=== PATIENT | female | born 1965 | race Caucasian/White ===

== ENCOUNTER 2020-09-12 14:35 | Emergency (ER) | payer OTHER ==
[2020-09-12 17:14] LABS: CORONAVIRUS 2019 SARS-COV-2 NEGATIVE (NEGATIVE); INFLUENZA A NAA NEGATIVE (NEGATIVE)
[2020-09-12 18:45] LABS: BILIRUBIN NEGATIVE (NEGATIVE); BLOOD 1+ Ery/uL (NEGATIVE); CLARITY CLEAR (CLEAR); COLOR YELLOW (YELLOW); GLUCOSE (U) NORMAL (NORMAL); LEUKOCYTES NEGATIVE Leu/uL (NEGATIVE); NITRITE NEGATIVE (NEGATIVE); PROTEIN NEGATIVE (NEGATIVE); UROBILINOGEN 0.2 mg/dL (0.2-1.0)
[2020-09-12 18:46] LABS: BASOPHIL 0.2 % (0-2); EOSINOPHIL 1.8 % (0-5); HCT 44.2 % (37.0-47.0); LYMPHOCYTE 26.7 % (15-48); MCHC 31.7 g/dL (32.0-36.0); MCV 97.8 fL (78.0-100.0); MONOCYTE 6.5 % (0-12); MPV 9.7 fL (6.0-9.5); NEUTROPHIL 64.4 % (41-80); NRBC 0; PLT 151 K/uL (150-400); RBC 4.52 M/uL (4.20-5.40); RDW 13.5 % (11.5-14.0); WBC 5.5 K/uL (4.0-10.5)
[2020-09-12 18:48] LABS: SQUAMOUS EPITHELIAL CELLS RARE
[2020-09-12 19:03] LABS: ALBUMIN 3.4 g/dL (3.4-5.0); BILIRUBIN - TOTAL 0.2 mg/dL (0.2-1.0); BUN/CREAT RATIO (CALC) 17.4 RATIO; CREATININE 0.46 mg/dL (0.51-0.95); GLOBULIN (CALCULATION) 3.5 g/dL; POTASSIUM 3.5 mmol/L (3.5-5.1); TOTAL PROTEIN 6.9 g/dL (6.4-8.2)
== END 2020-09-12 21:09 | disposition home or self-care (01) ==
LOC: FER 14:35
PROVIDERS: Emergency Medicine; Nurse Practitioner Family
DX: B34.9 Viral infection, unspecified (principal); R07.89 Other chest pain; J44.9 Chronic obstructive pulmonary disease, unspecified; Z88.0 Allergy status to penicillin; Z87.891 Personal history of nicotine dependence; Z20.822 Contact with and (suspected) exposure to COVID-19
CPT/HCPCS: 36415; 71046; 80053; 81001; 85025; J1885; J7030; U0002

== ENCOUNTER 2021-01-14 21:05 | Day surgery (SDCO) | payer OTHER ==
[~2021-01-14] VITALS: Ht 154.9 cm; Wt 47.2 kg
[2021-01-14 21:36] LABS: BASOPHIL 0.4 % (0-2); EOSINOPHIL 1.9 % (0-5); HCT 55.1 % (37.0-47.0); HGB 17.8 g/dl (12.5-16.0); LYMPHOCYTE 26.8 % (15-48); MCH 32.2 pg (25.0-31.0); MCHC 32.3 g/dL (32.0-36.0); MCV 99.6 fL (78.0-100.0); MONOCYTE 9.1 % (0-12); MPV 10.2 fL (6.0-9.5); NEUTROPHIL 61.4 % (41-80); NRBC 0; PLT 182 K/uL (150-400); RBC 5.53 M/uL (4.20-5.40); RDW 13.4 % (11.5-14.0); WBC 4.7 K/uL (4.0-10.5)
[2021-01-14 22:05] LABS: INR 1.09 (0.9-1.2); PROTHROMBIN TIME 13.4 SECONDS (11.4-13.6); PTT 28.5 SECONDS (22.2-34.7)
[2021-01-14 22:06] LABS: D-DIMER 0.57 ug/mLFEU (0.00-0.41)
[2021-01-14 22:18] LABS: ALBUMIN 3.3 g/dL (3.4-5.0); ALKALINE PHOSHATASE 60 U/L (46-116); ALT 11 U/L (14-59); AST 14 U/L (15-37); BILIRUBIN - TOTAL 0.5 mg/dL (0.2-1.0); BUN 9 mg/dL (7-18); BUN/CREAT RATIO (CALC) 17.3 RATIO; CHLORIDE 98 mmol/L (98-107); CO2 (BICARBONATE) 44 mmol/L (21-32); CREATININE 0.52 mg/dL (0.51-0.95); GLOBULIN (CALCULATION) 4.4 g/dL; GLUCOSE 134 mg/dL (74-106); POTASSIUM 3.2 mmol/L (3.5-5.1); TOTAL PROTEIN 7.7 g/dL (6.4-8.2)
[2021-01-14 22:19] LABS: PRO-BNP 397 pg/mL (<125)
[2021-01-15] MEDS ORDERED: GABAPENTIN600 MG PO (05:31)
--- NOTE | 2021-01-15 05:35 | NUR ---
AM ABG OBTIANED. PATIENT WAS ON 4L SAT 98%, PATIENT LETHARGIC, BUT COHERENT WHEN TALKING AND ARROUSABLE. PATIENT STATED WEARS 3L @ HOME. ABG ON 4L 7.245/109 CO2/120 PO2/47.2, SAT 98% . RESULTS CALLED TO ADAN MIX AND DISCUSSED PLACING PATIENT ON BIPAP. THIS RT WENT AND EDUCATED PATIENT ON BIPAP, IMPORTANCE AND PURPOSE AT THIS TIME FOR HER BENEFIT. ALSO EXPLAINED TO PATIENT ABOUT THE INCREASED CO2 LEVELS AND HOW SHE HAS BEEN FEELING. PATIENT AGREED TO BIPAP. PATIENT IS PETITE, SMALL MASK REQUIRED. PLACED ON 07/21, RATE 18, FIO2 35% TO KEEP SAT 88-92%. PATIENT TOLERATING BIPAP EXTREMELY WELL. RT STAYED WITH PATIENT ABOUT 10 MINUTES AFTER PLACING ON BIPAP. ADAN MIX NOTIFIED OF SETTINGS. CONTINUE TO MONITOR PATIENT AND AWAIT FURTHER ORDERS. SAT 91%, HR 105 PATIENT HAS RALES THROUGHOUT ON AUSCULATION.
[2021-01-15 06:00] LABS: BASOPHIL 0 % (0-2); EOSINOPHIL 0 % (0-5); HCT 48.5 % (37.0-47.0); HGB 15.1 g/dl (12.5-16.0); LYMPHOCYTE 8.3 % (15-48); MCH 31.5 pg (25.0-31.0); MCHC 31.1 g/dL (32.0-36.0); MCV 101.3 fL (78.0-100.0); MONOCYTE 0.9 % (0-12); MPV 10.3 fL (6.0-9.5); NEUTROPHIL 90.4 % (41-80); NRBC 0; PLT 155 K/uL (150-400); RBC 4.79 M/uL (4.20-5.40); RDW 13.4 % (11.5-14.0); WBC 2.3 K/uL (4.0-10.5)
[2021-01-15 06:15] LABS: CREATININE 0.53 mg/dL (0.51-0.95); POTASSIUM 3.7 mmol/L (3.5-5.1)
--- NOTE | 2021-01-15 06:51 | NUR ---
IMPROVING ABG FROM PREVIOUS. DRAWN ON BIPAP 07/21, RATE 18, 35%. 7.302/ 98.0 CO2/57.3 PO2/48.4 SAT 88% RESULTS SHOWN TO ADAN HICKEY APRN. PATIENT ASLEEP, RESTING COMFORTABLY ON BIPAP. INCREASED RR 22. PATIENT NEEDS MORE TIME FOR ABG CORRECTION. CONTINUE TO MONITOR PATIENT
[2021-01-15] MEDS ORDERED: VICODIN 10/3251 EACH PO (09:20)
[2021-01-15] MEDS ORDERED: BETAGAN PO (09:22)
[2021-01-15] MEDS ORDERED: [UNRECOGNIZED DRUG - OTHER] PO (09:22)
[2021-01-15] MEDS ORDERED: SEROQUEL 100MG100 MG PO (09:23)
[2021-01-15] MEDS ORDERED: SYNTHROID100 MCG PO (09:26)
--- NOTE | 2021-01-15 14:12 | NUR ---
01/15/21 Ms. Storey and her daughter, Camille Storey, share a home together. Ms. Storey has home 02 and concentrator provided by [facility]. She is independent with ADLs, although SOA appears to limit her abilities. She has a supportive friend, Teresa Barlow, who helps as needed. - A referral was made to the Patient Resource Computer [facility] to arrange a PCP. An appointment was set up with Dr. Terry for 01/27/21 at 3:00. - Ms. Storey requested a pulse-ox. A referral was made to the [facility] and pulse-ox was provided by Nursing. - A referral was received to arrange for a trilogy. A referral to [facility] is in progress.
--- NOTE | 2021-01-15 14:44 | NUR ---
HOME PULSE OXIMETRY GIVEN TO PATIENT AND INSTRUCTED HOW TO USE AND DAILY LOG TO RECORD OXYGEN..
--- NOTE | 2021-01-15 17:30 | NUR ---
01/15/21 The order for a trilogy and supporting documentation has been faxed to [facility]. [facility] will initiate pre-auth from insurance.
[2021-01-15 19:26] LABS: BILIRUBIN NEGATIVE (NEGATIVE); BLOOD TRACE-INTACT Ery/uL (NEGATIVE); COLOR YELLOW (YELLOW); GLUCOSE (U) NORMAL (NORMAL); LEUKOCYTES NEGATIVE Leu/uL (NEGATIVE); NITRITE NEGATIVE (NEGATIVE); PROTEIN TRACE (LOW) mg/dL (NEGATIVE); SPECIFIC GRAVITY 1.025 (1.001-1.030)
[2021-01-15 19:36] LABS: AMPHETAMINES POSITIVE (NEGATIVE); BARBITURATES NEGATIVE (NEGATIVE); ECSTASY (MDMA) NEGATIVE (NEGATIVE); MARIJUANA (THC) NEGATIVE (NEGATIVE); METHADONE NEGATIVE (NEGATIVE); OPIATES POSITIVE (NEGATIVE); OXYCODONE POSITIVE (NEGATIVE)
[2021-01-15 19:39] LABS: BACTERIA 1+; CLARITY HAZY (CLEAR); URINARY WBC RARE
[2021-01-15 19:40] LABS: AMORPHOUS URATES CRYSTALS MODERATE
[2021-01-16 06:02] LABS: BASOPHIL 0 % (0-2); EOSINOPHIL 0 % (0-5); HCT 44.6 % (37.0-47.0); HGB 13.8 g/dl (12.5-16.0); LYMPHOCYTE 9.1 % (15-48); MCH 31.8 pg (25.0-31.0); MCHC 30.9 g/dL (32.0-36.0); MCV 102.8 fL (78.0-100.0); MONOCYTE 6.7 % (0-12); MPV 10.5 fL (6.0-9.5); NEUTROPHIL 83.8 % (41-80); NRBC 0; PLT 133 K/uL (150-400); RBC 4.34 M/uL (4.20-5.40); RDW 13.3 % (11.5-14.0)
[2021-01-16 06:09] LABS: WBC 4.8 K/uL (4.0-10.5)
[2021-01-16 06:23] LABS: BUN/CREAT RATIO (CALC) 27.3 RATIO; CREATININE 0.44 mg/dL (0.51-0.95); POTASSIUM 4.2 mmol/L (3.5-5.1)
--- NOTE | 2021-01-16 11:57 | NUR ---
PER PT SHE REPORTS [facility] CALLS SND SAID TRILOGY WILL BE 200 A MONTH; PT REPORTS SHE CAN NOT AFFORD THAT I CALLED SPOKE TO JUAN J FROM [facility] SHE IS TRYING TO ARRANGE FOR HER TO GET HELP WITH [employer] WILL LET US KNOW ONCE SHE FINDSS OUT
--- NOTE | 2021-01-16 12:17 | NUR ---
PT WAS ASLEEP WHEN ENTERED THE ROOM, ATTEMPTED TO CALL HIS NAME SEVERAL TIMES, TAP ON SHOULDER, ETC. FINALLY THIS RN PERFORMED A STERNAL RUB TO AWAKEN PT, PT JUMPED UP TO SITTING POSITION AND GRABBED THIS RNS RIGHT ARM WITH HIS LEFT HAND. HE STARTED MUTTERING INCOHERENT SENTENCES AND THIS RN REASSURED HIM EVERYTHING WAS OKAY, HIS VITALS JUST NEEDED TO BE CHECKED AND TO LET GO OF THE ARM. IT TOOK 4 VERBAL PROMPTS FOR PT TO REMOVE HIS HAND.
--- NOTE | 2021-01-16 12:42 | NUR ---
TC WITH LEILANI AT [facility]. SHE HAS FAXED MANAGER NEW PRODUCT PAPERWORK FOR PT. MET WITH PT AND SHE COMPLETED THE PAPERWORK. FAXED THE FINANCIAL ASSISTANCE PAPERWORK BACK TO LEILANI AT [facility]. PT. SPOKE WITH LEILANI AT [facility] AND LEILANI EXPLAINED THE FINANCIAL APPLICATION TO THE PT.
--- NOTE | 2021-01-17 06:19 | NUR ---
0627am Patient vomiting zofran given
--- NOTE | 2021-01-17 12:12 | NUR ---
01/17/21 Estelle Funez provided authorization for the trilogy, auth # [id number] - CPT code - E0466. This information was relayed to [facility] at [facility]
[2021-01-17] MEDS ORDERED: PREDNISONE 20MG20 MG PO (15:31)
[2021-01-17] MEDS ORDERED: PEPCID AC20 MG PO (15:32)
[2021-01-17] MEDS ORDERED: SEROQUEL 100MG100 MG PO (15:35)
[2021-01-17] MEDS ORDERED: LEVAQUIN500 MG PO (15:36)
[2021-01-17] MEDS ORDERED: COMPAZINE10 MG PO (15:37)
[2021-01-17] MEDS ORDERED: DUONEB 2.5-0.5M1 AMP NEB (15:39)
[2021-01-17] MEDS ORDERED: AMBIEN10 MG PO (15:49)
[2021-01-17] MEDS ORDERED: XANAX0.5 MG PO (15:51)
--- NOTE | 2021-01-17 17:17 | NUR ---
01/17/21 A referral was made to [facility] . [facility] Patient requested a shower chair and quad cane. These items were not ordered based on Therapy evaluations indicating patient to be independent with ambulation. - [facility] provided a trilogy. - Report given to CARIDAD Mendez RN.
[2021-01-18 06:11] LABS: HIV SCREEN 4TH GENERATION WRFX Non Reactive (Non Reactive)
[2021-01-23 05:10] LABS: HBSAG SCREEN Negative (Negative); HEP B CORE AB, TOT Negative (Negative); HEP C VIRUS AB <0.1 (0.0-0.9)
== END 2021-01-17 17:00 | disposition home health service (06) ==
LOC: FER 21:05 → FTCU 01-15 02:07
PROVIDERS: Emergency Medicine Emergency Medical Services; Nurse Practitioner; ADMIT Allergy & Immunology Allergy
DX: J43.2 Centrilobular emphysema (principal); J96.02 Acute respiratory failure with hypercapnia; J98.11 Atelectasis; E05.00 Thyrotoxicosis with diffuse goiter without thyrotoxic crisis or storm; G89.4 Chronic pain syndrome; F17.210 Nicotine dependence, cigarettes, uncomplicated; F41.1 Generalized anxiety disorder; R91.1 Solitary pulmonary nodule; R07.9 Chest pain, unspecified; M79.7 Fibromyalgia; Z88.0 Allergy status to penicillin; Z98.51 Tubal ligation status; Z20.822 Contact with and (suspected) exposure to COVID-19; Z79.899 Other long term (current) drug therapy
CPT/HCPCS: 36415; 36600; 71045; 71275; 80048; 80053; 80061; 80305; 81001; 82803; 83605; 83880; 84145; 84439; 84443; 84484; 85025; 85379; 85610; 85730; 86704; 86706; 86708; 86803; 87040; 87340; 87389; 93005; 94640; 94660; 94664; 97162; 97166; 97530-GP; 97535; G0378; J0780; J1650; J1956; J2270; J2405; J2930; J7040; J7512; Q9967; U0002

== ENCOUNTER 2021-05-26 13:21 | Emergency (ER) | payer OTHER ==
[~2021-05-26 13:21] MED LIST: AMBIEN10 MG PO; BETAGAN PO; COMPAZINE10 MG PO; DUONEB 2.5-0.5M1 AMP NEB; GABAPENTIN600 MG PO; LEVAQUIN500 MG PO; PEPCID AC20 MG PO; PREDNISONE 20MG20 MG PO; SEROQUEL 100MG100 MG PO; SYNTHROID100 MCG PO; VICODIN 10/3251 EACH PO; XANAX0.5 MG PO; [UNRECOGNIZED DRUG - OTHER] PO
== END 2021-05-26 15:10 | disposition home or self-care (01) ==
LOC: FER 13:21
DX: B34.9 Viral infection, unspecified (principal); J44.9 Chronic obstructive pulmonary disease, unspecified; Z88.0 Allergy status to penicillin; Z20.822 Contact with and (suspected) exposure to COVID-19
CPT/HCPCS: 99283; U0002

== ENCOUNTER 2021-08-19 18:09 | Inpatient (IN) | payer OTHER ==
[~2021-08-19] VITALS: Ht 167.6 cm; Wt 40.1 kg
[2021-08-19 18:50] LABS: BASOPHIL 0.2 % (0-2); EOSINOPHIL 0.8 % (0-5); HCT 43.2 % (37.0-47.0); LYMPHOCYTE 11.7 % (15-48); MCH 31.3 pg (25.0-31.0); MCHC 30.1 g/dL (32.0-36.0); MCV 104.1 fL (78.0-100.0); MONOCYTE 3.7 % (0-12); MPV 8.7 fL (6.0-9.5); NEUTROPHIL 82.9 % (41-80); NRBC 0; PLT 156 K/uL (150-400); RBC 4.15 M/uL (4.20-5.40); RDW 13.7 % (11.5-14.0); WBC 8.6 K/uL (4.0-10.5)
[2021-08-19 19:13] LABS: BILIRUBIN NEGATIVE (NEGATIVE); BLOOD 1+ Ery/uL (NEGATIVE); CLARITY CLEAR (CLEAR); COLOR YELLOW (YELLOW); GLUCOSE (U) NORMAL (NORMAL); LEUKOCYTES NEGATIVE Leu/uL (NEGATIVE); NITRITE NEGATIVE (NEGATIVE); PROTEIN TRACE (LOW) mg/dL (NEGATIVE); SPECIFIC GRAVITY 1.025 (1.001-1.030); pH 6.5 (5.0-9.0)
[2021-08-19 19:23] LABS: BACTERIA TRACE; MUCOUS TRACE; URINARY WBC RARE
[2021-08-19 19:32] LABS: ALBUMIN 3.5 g/dL (3.4-5.0); ALKALINE PHOSHATASE 62 U/L (46-116); ALT 12 U/L (14-59); AST 12 U/L (15-37); BILIRUBIN - TOTAL 0.2 mg/dL (0.2-1.0); BUN 12 mg/dL (7-18); BUN/CREAT RATIO (CALC) 30.8 RATIO; CHLORIDE 94 mmol/L (98-107); CO2 (BICARBONATE) > 45 mmol/L (21-32); CREATININE 0.39 mg/dL (0.51-0.95); GLOBULIN (CALCULATION) 3.6 g/dL; GLUCOSE 111 mg/dL (74-106); POTASSIUM 4.3 mmol/L (3.5-5.1); TOTAL PROTEIN 7.1 g/dL (6.4-8.2)
[2021-08-19 19:58] LABS: LACTIC ACID 0.7 mmol/L (0.4-1.9)
[2021-08-19 20:22] LABS: FT4 (FREE T4) 0.4 ng/dL (0.76-1.46)
[2021-08-19 21:24] LABS: BILIRUBIN NEGATIVE (NEGATIVE); BLOOD 1+ Ery/uL (NEGATIVE); CLARITY CLEAR (CLEAR); COLOR YELLOW (YELLOW); GLUCOSE (U) NORMAL (NORMAL); LEUKOCYTES NEGATIVE Leu/uL (NEGATIVE); NITRITE NEGATIVE (NEGATIVE); PROTEIN NEGATIVE (NEGATIVE); SPECIFIC GRAVITY >=1.030 (1.001-1.030); UROBILINOGEN 0.2 mg/dL (0.2-1.0)
[2021-08-19 21:32] LABS: BACTERIA TRACE; MUCOUS TRACE; TRANSITIONAL EPITHELIAL CELLS RARE; URINARY WBC RARE
[2021-08-19 22:00] LABS: CORONAVIRUS 2019 SARS-COV-2 NEGATIVE (NEGATIVE); INFLUENZA A NAA NEGATIVE (NEGATIVE)
[2021-08-20 04:56] LABS: BASOPHIL 0.1 % (0-2); EOSINOPHIL 0.1 % (0-5); HCT 38.9 % (37.0-47.0); HGB 11.8 g/dl (12.5-16.0); LYMPHOCYTE 7.1 % (15-48); MCH 31.6 pg (25.0-31.0); MCHC 30.3 g/dL (32.0-36.0); MCV 104.3 fL (78.0-100.0); MONOCYTE 0.3 % (0-12); MPV 8.7 fL (6.0-9.5); NRBC 0; PLT 132 K/uL (150-400); RBC 3.73 M/uL (4.20-5.40); RDW 13.6 % (11.5-14.0); WBC 6.9 K/uL (4.0-10.5)
[2021-08-20 05:25] LABS: BUN 11 mg/dL (7-18); CHLORIDE 97 mmol/L (98-107); CO2 (BICARBONATE) > 45 mmol/L (21-32); CREATININE 0.38 mg/dL (0.51-0.95); GLUCOSE 119 mg/dL (74-106); POTASSIUM 5.1 mmol/L (3.5-5.1)
[2021-08-20] MEDS ORDERED: XANAX0.5 MG PO (13:59)
[2021-08-20] MEDS ORDERED: TRELEGY ELLIPT1 EACH INH (14:02)
[2021-08-20] MEDS ORDERED: SEROQUEL 100MG100 MG PO (14:02)
[2021-08-20] MEDS ORDERED: SYNTHROID75 MCG PO (14:27)
--- NOTE | 2021-08-21 11:01 | NUR ---
CALL TO ROOM AT 1030, PATIENT ON FLOOR STATED SHE ROLLED OUT TRYING TO FIND HER PHONE, (WHICH SHE HAD BEEN LOOKING FOR BUT NONE NOTED ON ADMIT) NO INJURY NOTED, DENIED DIFFICULTY MOVING, BUTTBONE SORE WAS ONLY CHANGE. ASSESSED WITH NO INJURY, DR FUNK INFORMED WITH NO NEW ORDERS, CALL TO SISTER, MESSAGE LEFT. CALL LIGHT CONTINUED TO BE USED
--- NOTE | 2021-08-21 11:30 | NUR ---
SISTER RETURNED CALL, STATED PATIENT HAD BEEN FALLING AT HOME AND HER CPAP THAT SHE'S ONLY SUPPOSED TO WEAR AT NIGHT SHE WEARS 24/7 AND GETS UPSET WHEN THEY TRY TO EDUCATE HER OTHERWISE
--- NOTE | 2021-08-21 15:19 | NUR ---
TC TO SISTER [facility]. SHE ADVISED THAT PT. LIVES ALONE. SHE HAS O2 AT HOME. AND A CPAP.
--- NOTE | 2021-08-21 15:36 | NUR ---
SPOKE WITH PT. SHE IS IN AGREEMENT TO HAVE HH. PT. HAS NO PREFERENCE OF HH. TC TO [facility] WITH [facility] THIS IS THE ONLY HH ACCEPTING PT AT THIS TIME. [facility] ADVISED TO FAX IT TO [facility] SO THEY CAN RUN INSURANCE. ADVISED [facility] D/C COULD BE 2-3 DAYS.
--- NOTE | 2021-08-22 10:31 | NUR ---
SPOKE WITH [facility]ILIANA AT [facility]. SHE ADVISED THAT [facility] WILL ACCEPT MS. TRAYLOR A PATIENT. PLEASE CALL [facility] AT [phone] WHEN PT DISCHARGES.
--- NOTE | 2021-08-22 12:48 | NUR ---
PT NEEDS A PORTABLE O2 TANK. ANDRE IS GOING TO CALL [facility] FOR A PORTABLE THE [facility] OFFICE IS CLOSED DUE TO WEATHER. PT SIGNED CHOICE FORM AND COPY GIVEN.
--- NOTE | 2021-08-22 15:52 | NUR ---
08/22/21 A referral was made to [facility] for a portable tank in anticipation of dc on 08/23.
[2021-08-23] MEDS ORDERED: PREDNISONE 20MG20 MG PO (09:33)
== END 2021-08-23 11:35 | disposition home or self-care (01) | DRG 189 ==
LOC: FER 18:09 → FMS 08-20 12:19
PROVIDERS: Emergency Medicine; Emergency Medicine Emergency Medical Services; ADMIT Internal Medicine
PROC: 5A09357 Assistance with Respiratory Ventilation, Less than 24 Consecutive Hours, Continuous Positive Airway Pressure (ICD-10-PCS; principal; 2021-08-20)
DX: J96.21 Acute and chronic respiratory failure with hypoxia (principal); J44.1 Chronic obstructive pulmonary disease with (acute) exacerbation; E44.0 Moderate protein-calorie malnutrition; Z68.1 Body mass index [BMI] 19.9 or less, adult; J96.22 Acute and chronic respiratory failure with hypercapnia; Z20.822 Contact with and (suspected) exposure to COVID-19; E05.00 Thyrotoxicosis with diffuse goiter without thyrotoxic crisis or storm; M79.7 Fibromyalgia; E03.9 Hypothyroidism, unspecified; F32.A Depression, unspecified; M54.9 Dorsalgia, unspecified; G89.29 Other chronic pain; R44.1 Visual hallucinations; F39 Unspecified mood [affective] disorder; Z99.81 Dependence on supplemental oxygen; Z90.711 Acquired absence of uterus with remaining cervical stump; Z88.0 Allergy status to penicillin; Z79.899 Other long term (current) drug therapy
CPT/HCPCS: 36415; 36600; 71045; 80048; 80053; 81001; 82550; 82803; 83605; 83690; 83880; 84145; 84439; 84443; 84484; 85025; 85379; 87040; 93005; 94640; J0456; J1650; J1956; J2405; J2920; J2930; J7030; J7040; J7050; U0002

== ENCOUNTER 2021-09-26 16:29 | Emergency (ER) | payer OTHER ==
[~2021-09-26 16:29] MED LIST changes: +SYNTHROID75 MCG PO; +TRELEGY ELLIPT1 EACH INH
[2021-09-26 19:24] LABS: BASOPHIL 0.2 % (0-2); EOSINOPHIL 1.3 % (0-5); HCT 36.7 % (37.0-47.0); HGB 11.5 g/dl (12.5-16.0); LYMPHOCYTE 31.6 % (15-48); MCH 31.2 pg (25.0-31.0); MCHC 31.3 g/dL (32.0-36.0); MCV 99.5 fL (78.0-100.0); MONOCYTE 5.2 % (0-12); MPV 8.6 fL (6.0-9.5); NEUTROPHIL 61.4 % (41-80); NRBC 0; PLT 159 K/uL (150-400); RBC 3.69 M/uL (4.20-5.40); RDW 14.8 % (11.5-14.0); WBC 6.3 K/uL (4.0-10.5)
[2021-09-26 19:54] LABS: ALBUMIN 3.3 g/dL (3.4-5.0); ALKALINE PHOSHATASE 59 U/L (46-116); ALT 10 U/L (14-59); AST 19 U/L (15-37); BILIRUBIN - TOTAL 0.3 mg/dL (0.2-1.0); BUN 4 mg/dL (7-18); BUN/CREAT RATIO (CALC) 8.7 RATIO; C-REACTIVE PROTEIN <0.20 mg/dL (<=0.90); CHLORIDE 95 mmol/L (98-107); CO2 (BICARBONATE) 43 mmol/L (21-32); CREATININE 0.46 mg/dL (0.51-0.95); GLOBULIN (CALCULATION) 3.1 g/dL; GLUCOSE 86 mg/dL (74-106); LDH 143 U/L (81-234); MAGNESIUM 1.7 mg/dL (1.8-2.4); POTASSIUM 3.5 mmol/L (3.5-5.1); TOTAL PROTEIN 6.4 g/dL (6.4-8.2)
[2021-09-26 20:03] LABS: CORONAVIRUS 2019 SARS-COV-2 NEGATIVE (NEGATIVE); INFLUENZA A NAA NEGATIVE (NEGATIVE)
[2021-09-26 20:06] LABS: LACTIC ACID 0.6 mmol/L (0.4-1.9)
[2021-09-26] MEDS ORDERED: MEDROL 4MG DOSEP4 MG PO (23:09)
[2021-09-26] MEDS ORDERED: VENTOLIN HFA18 GM INH (23:09)
[2021-09-27] MEDS ORDERED: NORCO 5-325 TA1 EACH PO (00:26)
== END 2021-09-27 09:17 | disposition home or self-care (01) ==
LOC: FER 16:29
PROVIDERS: Emergency Medicine
DX: J43.9 Emphysema, unspecified (principal); S32.2XXA Fracture of coccyx, initial encounter for closed fracture; I10 Essential (primary) hypertension; F17.210 Nicotine dependence, cigarettes, uncomplicated; Z88.0 Allergy status to penicillin; Z20.822 Contact with and (suspected) exposure to COVID-19
CPT/HCPCS: 36415; 36600; 71250; 72220; 80053; 82728; 82803; 83605; 83615; 83735; 84145; 84484; 85025; 86140; 87040; 93005; 94664; 94762; J2930; U0002